=== PATIENT | female | born 1965 | race Caucasian/White ===

== ENCOUNTER 2021-12-30 19:55 | Emergency (ER) | payer MEDICAID ==
[~2021-12-30] VITALS: Ht 157.5 cm; Wt 40.9 kg
[2021-12-30 21:15] LABS: BASOPHILS % (AUTO) 0.3 % (0-1); EOSINOPHILS % (AUTO) 0.6 % (0-6); HEMATOCRIT 33.9 % (35.0-45.0); HEMOGLOBIN 10.7 g/dl (12.0-16.0); LYMPHOCYTES # (AUTO) 1.8 X10'3 (1.1-4.8); LYMPHOCYTES % (AUTO) 29.4 % (21-51); MEAN CORPUSCULAR HEMOGLOBIN 24.7 PG (27.0-31.0); MEAN CORPUSCULAR HGB CONC 31.5 g/dL (33.0-36.5); MEAN CORPUSCULAR VOLUME 78.4 FL (78-98); MEAN PLATELET VOLUME 7.6 FL (7.4-10.4); MONOCYTES # (AUTO) 0.7 X10'3 (0-0.9); MONOCYTES % (AUTO) 11.4 % (2-12); NEUTROPHILS # (AUTO) 3.5 X10'3 (1.8-7.7); NEUTROPHILS % (AUTO) 58.3 % (42-75); RED BLOOD COUNT 4.33 X10'6 (4.20-5.60); RED CELL DISTRIBUTION WIDTH 16.7 % (11.5-14.5); WHITE BLOOD COUNT 6.1 X10'3 (4.5-11.0)
[2021-12-30 21:31] LABS: PLATELET COUNT 48 X10'3 (140-440)
[2021-12-30 21:32] LABS: ALANINE AMINOTRANSFERASE 28 U/L (12-78); ALBUMIN 2.6 G/DL (3.4-5.0); ALBUMIN/GLOBULIN RATIO 0.6 (1.1-1.5); ALKALINE PHOSPHATASE 180 IU/L (46-116); ANION GAP 11 (8-16); ASPARTATE AMINO TRANSFERASE 18 U/L (10-37); BLOOD UREA NITROGEN 9 MG/DL (7-18); CHLORIDE 103 MMOL/L (99-107); CREATININE 0.69 MG/DL (0.40-0.90); POTASSIUM 3.8 MMOL/L (3.5-5.1); SODIUM 135 MMOL/L (135-145); TOTAL CARBON DIOXIDE 21.5 MMOL/L (24-32); TOTAL PROTEIN 6.9 G/DL (6.4-8.2); eGFR 88 ML/MIN
[2021-12-30 21:40] LABS: GLUCOSE 537 MG/DL (70-104)
[2021-12-30 21:54] LABS: BILIRUBIN,TOTAL 0.1 MG/DL (0.1-1.0)
[2021-12-30] MEDS ORDERED: insulin regular, human 10 units/0.1 ml syringe IV ONE (22:15)
[2021-12-30 22:30] LABS: APTT 25 SECONDS (22-32)
[2021-12-30] MEDS ORDERED: normal saline 1000ml 1,000 ML IV ONE ×2 (22:45)
[2021-12-30 23:01] LABS: CLARITY,URINE CLOUDY (Clear); GLUCOSE, URINE >=1000 mg/dl (Neg); KETONES,URINE NEGATIVE (Neg); LEUKOCYTE ESTERASE ,URINE TRACE (Neg); NITRITES, URINE NEGATIVE (Neg); OCCULT BLOOD,URINE SMALL (Neg); PROTEIN,URINE NEGATIVE (Neg); UROBILINOGEN,URINE 0.2 E.U/dL (0.2-1.0)
[2021-12-30 23:04] LABS: UA COLLECTION TYPE URINAL
[2021-12-30 23:05] LABS: COLOR,URINE YELLOW (Yellow)
[2021-12-30 23:09] LABS: WBC,URINE 20-30 /HPF (0-4)
[2021-12-30 23:10] LABS: BACTERIA,URINE FEW /HPF (Neg); SQUAMOUS EPITHELIAL CELL,UR FEW /LPF (FEW); TRANSITIONAL EPI CELLS,URINE FEW /HPF; YEAST MANY /HPF (NEGATIVE)
[2021-12-30] MEDS ORDERED: cefTRIAXone 1g/NS 100ml IVPB 100 ML IV ONE (23:15)
--- NOTE | 2021-12-30 23:15 | NUR ---
Patient was found to be covered in her own urine and feces. Patient was changed and found to have reddened and excoriated skin in her perineal area. Patient was cleaned and placed into new bedding.
[2021-12-30 23:24] LABS: URINE AMPHETAMINE SCREEN NEGATIVE (Neg); URINE BARBITUATE SCREEN NEGATIVE (Neg); URINE BENZODIAZEPINES SCREEN NEGATIVE (Neg); URINE CANNABINOID SCREEN NEGATIVE (Neg); URINE COCAINE SCREEN NEGATIVE (Neg); URINE METHADONE SCREEN NEGATIVE (Neg); URINE OPIATE SCREEN NEGATIVE (Neg); URINE PHENCYCLIDINE SCREEN NEGATIVE (Neg)
--- NOTE | 2021-12-31 06:33 | NUR ---
patient asleep at this time.we will monitor.
[2021-12-31] MEDS ORDERED: NITR100C6 PO (07:10)
[2021-12-31 07:58] VITALS: BP 153/87
--- NOTE | 2022-01-05 11:53 | NUR ---
Patients does not have a phone number listed to call and contact regarding possible need for antibiotics. Letter sent to listed address. Patient was placed on macrobid after discharge. If patient calls ER, patient needs to be asked whether they are still symptomatic. If patient is not symptomatic; nothing to do. If patient is symptomatic patient needs to have a prescription for levaquin 500 mg PO q day for total of 7 [address] España[address]
== END 2021-12-31 08:02 | disposition home or self-care (01) ==
LOC: ER 19:56
DX: S82.201A Unspecified fracture of shaft of right tibia, initial encounter for closed fracture (principal); S82.831A Other fracture of upper and lower end of right fibula, initial encounter for closed fracture; D69.6 Thrombocytopenia, unspecified; N39.0 Urinary tract infection, site not specified; R73.9 Hyperglycemia, unspecified; M79.604 Pain in right leg; Z59.00 Homelessness unspecified; Z88.5 Allergy status to narcotic agent; Z79.899 Other long term (current) drug therapy; X58.XXXA Exposure to other specified factors, initial encounter; Y93.89 Activity, other specified; Y92.89 Other specified places as the place of occurrence of the external cause; Y99.8 Other external cause status
CPT/HCPCS: 36415; 70450; 71045; 73560; 73600; 80053; 80305; 81001; 82140; 82948; 83605; 85025; 85610; 85730; 87077; 87088; 87186; 93005; 96361; 96365; 96375; 99285; J0696; J1815; J7030; 96374